=== PATIENT | female | born 1995 | race Caucasian/White ===

== ENCOUNTER 2022-07-28 06:51 | Emergency (ER) | payer BC, OTHER ==
[2022-07-28 07:25] VITALS: O2SAT 98
[2022-07-28] MEDS ORDERED: MORPHINE SULFATE 4 MG INJ IM ONE (07:37)
[2022-07-28] MEDS ORDERED: MORPHINE SULFATE 4 MG INJ ONE (07:40)
--- NOTE | 2022-07-28 07:43 | ERPHSYRPT ---
- History of Present Illness Time Seen by Provider: 07/28/22 07:38 Source: patient Exam Limitations: no limitations Patient Subjective Stated Complaint: Back pain Triage Nursing Assessment: Patient brought back to ED per w/c and transferred self to bed. Patient A+O X 3. Patient's skin pink, warm and dry. Patient complains of low mid back pain that goes down sofía legs that started 5 days ago. Patient states the pain has gotten worse. No visible injury or trauma noted. Patient complains of pain 02/02. Physician History: 27-year-old female morbidly obese with history of off-and-on low back pain presented in the ER with 4 days of worsening low back pain with radiation to the both lower extremities, moderate to severe sharp, aggravated with activity and better with resting/being still. No loss of bowel or bladder control. No perineal numbness. No numbness tingling or weakness of lower extremities. Denies any fall or trauma to the back. Timing/Duration: day(s) (4), constant, sudden, worse Method of Injury: unknown Quality: radiating, sharp Back Pain Location: lumbar spine, paraspinous muscles Back Pain Radiation: buttocks, upper legs Severity of Pain-Max: severe Severity of Pain-Current: severe Modifying Factors: Improves With: immobilization. Worsens With: movement Associated Symptoms: lower back pain, muscle spasms, No fever, No chills, No urinary incontinence, No loss of bowel control, No constipation, No nausea, No vomiting, No problems urinating, No light-headedness, No dizziness, No numbness in legs/feet, No weakness, No sensory/motor loss, No tingling in legs/feet Allergies/Adverse Reactions: No Known Drug Allergies Allergy (Unverified 07/28/22 07:17) Hx Influenza Vaccination/Date Given: No Hx Pneumococcal Vaccination/Date Given: No Immunizations Up to Date: Yes Travel Risk - International Travel Have you traveled outside of the country in past 3 weeks: No - Coronavirus Screening Are you exhibiting any of the following symptoms?: No Close contact with a COVID-19 positive Pt in past 14-21 Days: No - Vaccine Status Have you recieved a Covid-19 vaccination: Yes [employer] 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 - Vaccination Dates Date of 2cond Vaccination (if applicable): na - Review of Systems Constitutional: No Symptoms Eyes: No Symptoms Ears, Nose, & Throat: No Symptoms Respiratory: No Symptoms Cardiac: No Symptoms Abdominal/Gastrointestinal: No Symptoms Genitourinary Symptoms: No Symptoms Musculoskeletal: Back Pain Skin: No Symptoms Neurological: No Symptoms Endocrine: No Symptoms Hematologic/Lymphatic: No Symptoms Immunological/Allergic: No Symptoms - Past Medical History Pertinent Past Medical History: No Neurological History: No Pertinent History ENT History: No Pertinent History Cardiac History: No Pertinent History Respiratory History: No Pertinent History Endocrine Medical History: No Pertinent History Musculoskeletal History: No Pertinent History GI Medical History: No Pertinent History History: No Pertinent History Psycho-Social History: No Pertinent History Female Reproductive Disorders: No Pertinent History - Past Surgical History Past Surgical History: Yes Neuro Surgical History: No Pertinent History Cardiac: No Pertinent History Respiratory: No Pertinent History Gastrointestinal: No Pertinent History Genitourinary: No Pertinent History Musculoskeletal: No Pertinent History Female Surgical History: No Pertinent History Other Surgical History: Sofía ear tubes - Social History Smoking Status: Never smoker Exposure to second hand smoke: No Drug Use: marijuana Patient Lives Alone: No - Female History Hx Last Menstrual Period: irregular Hx Now: No - Nursing Vital Signs Nursing Vital Signs: Initial Vital Signs Pulse Rate 99 H 07/28/22 07:19 Respiratory Rate 18 07/28/22 07:19 Blood Pressure 201/131 07/28/22 07:19 O2 Sat by Pulse Oximetry 98 07/28/22 07:19 Pain Scale Pain Intensity 2 - Physical Exam General Appearance: no apparent distress, alert Eye Exam: PERRL/EOMI Neck Exam: normal inspection, non-tender, full range of motion Respiratory Exam: normal breath sounds, lungs clear Cardiovascular Exam: regular rate/rhythm, normal heart sounds Gastrointestinal Exam: soft, normal bowel sounds, No tenderness Back Exam: normal inspection, decreased range of motion, muscle spasm, point tenderness, other (Bilateral sacroiliac area tenderness. Straight leg raising test positive bilaterally at 30 degrees. Normal motor and sensory lower extremities. Bilateral knee reflexes 2+ and symmetrical.) Extremity Exam: normal inspection, normal range of motion Neurologic Exam: alert, oriented x 3, cooperative, sensation nml, No motor deficits, No motor weakness Skin Exam: normal color SpO2 Interpretation: normal SpO2: 98 O2 Delivery: Room Air Ordered Tests: Active Orders 24 hr Category Date Time Status CULTURE,URINE Stat Lab 07/28/22 08:10 Received HCG,QUALITATIVE URINE Stat Lab 07/28/22 08:10 Completed UA W/RFX CULTURE Stat Lab 07/28/22 08:10 Completed Medication Summary Discontinued Medications Generic Name Dose Route Start Last Admin Trade Name Delaney PRGeorge Reason Stop Dose Admin Ketorolac Tromethamine 60 mg 07/28/22 08:57 07/28/22 09:00 Ketorolac Tromethamine 30 Mg/Ml Inj IM 07/28/22 08:58 60 mg STAT ONE Administration Ketorolac Tromethamine Confirm 07/28/22 08:59 Ketorolac Tromethamine 30 Mg/Ml Inj Administered 07/28/22 09:00 Dose 60 mg .ROUTE .STK-MED ONE Morphine Sulfate 4 mg 07/28/22 07:37 07/28/22 07:41 Morphine Sulfate 4 Mg/Ml Injection IM 07/28/22 07:38 4 mg STAT ONE Administration Morphine Sulfate Confirm 07/28/22 07:40 Morphine Sulfate 4 Mg/Ml Injection Administered 07/28/22 07:41 Dose 4 mg .ROUTE .STK-MED ONE Orphenadrine Citrate 60 mg 07/28/22 08:57 07/28/22 09:00 Orphenadrine Citrate 60 Mg/2 Ml Vial IM 07/28/22 08:58 60 mg STAT ONE Administration Orphenadrine Citrate Confirm 07/28/22 08:59 Orphenadrine Citrate 60 Mg/2 Ml Vial Administered 07/28/22 09:00 Dose 60 mg .ROUTE .STK-MED ONE Lab/Rad Data: Laboratory Results 07/28/22 07/28/22 Range/Units 08:10 08:10 Urinalys Dipstick Clnc MAIN LAB Urine Color YELLOW (YELLOW) Urine Appearance SLIGHTLY CLOUDY A (CLEAR) Urine pH 5.0 (5-6) Ur Specific Cranberry 1.025 (1.005-1.025) POC Urine Protein Conf NEGATIVE (Negative) Urine Ketones NEGATIVE (NEGATIVE) Urine Nitrite NEGATIVE (NEGATIVE) Urine Bilirubin NEGATIVE (NEGATIVE) Urine Urobilinogen 0.2 (0-1) mg/dL Urine Leukocytes TRACE A (NEGATIVE) Urine WBC (Auto) 6-10 A (0-5) /HPF Urine RBC (Auto) 3-5 A (0-2) /HPF U Epithel Cells (Auto) RARE (FEW) /HPF Urine Bacteria (Auto) FEW A (NEGATIVE) /HPF Urine RBC TRACE-INTACT A (0-5) Blaise/ul Urine Mucus (Auto) SLIGHT A (NEGATIVE) /HPF Ur Culture Indicated? YES Urine Glucose NEGATIVE (NEGATIVE) mg/dL Urine HCG, Qual NEGATIVE (Negative) - Progress Progress: improved Progress Note: 07/28/22 07:38 27-year-old is evaluated for low back pain with radiation without any cauda equina symptoms. Negative neuro exam and lower extremities. No definite of midline tenderness but more of the sacroiliac area bilaterally. Given Toradol and Norflex with some improvement in pain, not completely resolved and given morphine, on reevaluation she is pain-free. Do not think she needs imaging or any other work-up, recommended NSAIDs and muscle relaxants to go home. Discussed signs symptoms of worsening needing return to ER which she seems understanding. Stable for discharge. Counseled pt/family regarding: lab results, diagnosis, need for follow-up - Departure Departure Disposition: Home Clinical Impression: Low back pain due to bilateral sciatica Condition: Stable Critical Care Time: No Referrals: RENAE SEALS MD [ACTIVE STAFF] - Follow up/PCP as directed (1-2 days for reevaluation) OJ - HELENA CUENCA NP [NON-STAFF PHY W/O PRIVILEGES] - Follow up/PCP as directed (1-2 days for reevaluation.) Instructions: Sciatica (DC) Additional Instructions: Drink plenty of fluids. Take Tylenol/ibuprofen as needed. Follow-up with primary care/orthopedics for reevaluation. Return to ER for excruciating back pain, numbness tingling weakness of lower extremities, perineal numbness, loss of bowel or bladder control etc. Prescriptions: Ibuprofen 600 mg PO Q6HPRN PRN 10 Days #20 tablet PRN Reason: Pain Cyclobenzaprine HCl 10 mg [Flexeril 10 MG] 10 mg PO TID PRN 7 Days #21 tablet PRN Reason: Pain
[2022-07-28 08:52] LABS: Appearance SLIGHTLY CLOUDY (CLEAR); Bilirubin NEGATIVE (NEGATIVE); Dipstick done @ ? MAIN LAB; Glucose NEGATIVE (NEGATIVE); Ketones NEGATIVE (NEGATIVE); Nitrite NEGATIVE (NEGATIVE); Protein,Urine Dip NEGATIVE (Negative); RBC TRACE-INTACT Ery/ul (0-5); Specific Gravity 1.025 (1.005-1.025); Urobilinogen 0.2 mg/dL (0-1)
[2022-07-28 08:54] LABS: Bacteria FEW /HPF (NEGATIVE); Epithelial Cells RARE /HPF (FEW); Mucus SLIGHT /HPF (NEGATIVE)
[2022-07-28 08:55] LABS: Urine Cultured Indicated? YES
[2022-07-28] MEDS ORDERED: Norflex 60 MG/2 ML IM ONE (08:57)
[2022-07-28] MEDS ORDERED: TORAdol 30 mg Injection IM ONE (08:57)
[2022-07-28] MEDS ORDERED: TORAdol 30 mg Injection ONE (08:59)
[2022-07-28] MEDS ORDERED: Norflex 60 MG/2 ML ONE (08:59)
[2022-07-28 10:00] VITALS: BP 143/72; PULSE 68
== END 2022-07-28 09:45 | disposition home or self-care (01) ==
LOC: ED 06:51
DX: M54.42 Lumbago with sciatica, left side (principal); M54.41 Lumbago with sciatica, right side
CPT/HCPCS: 81015; 81025; 87086; 96372; 99283; J1885; J2270; J2360